=== PATIENT | male | born 1970 | race Caucasian/White ===

== ENCOUNTER 2020-11-01 06:02 | Emergency (ER) | payer OTHER ==
[~2020-11-01] VITALS: Ht 175.3 cm; Wt 101.0 kg
[2020-11-01] MEDS ORDERED: ONDANSETRON PF 4 MG/2 ML VIAL. IVP ONE (06:15)
[2020-11-01] MEDS ORDERED: IV NORMAL SALINE 1,000ML 1,000 ML IV ONE (06:15)
[2020-11-01] MEDS ORDERED: MORPHINE SULFATE 4 MG/ML DISP.SYRIN. IV ONE (06:30)
--- NOTE | 2020-11-01 06:33 | PHYS DOC ---
General Adult EDM: Chief Complaint: Right flank pain HPI: HPI: 49-year-old male presents with right flank pain. The patient woke up to a full work this morning and began to have some right flank and right low back pain. This was followed by nausea and vomiting. He did not have any food in his stomach so it is mostly dry heaves. After 15 or 20 minutes, the pain decreased and the patient continued to get ready for work. He then had another episode of 8 out of 10 pain and further vomiting. The pain did not subside so he decided come the emergency room. He currently has 7 out of 10 pain that he describes as a cramping pressure in the right flank. He was feeling normal when he went to bed last night. Denies fever or chills. No history of kidney stones. He does feel like he has to urinate more frequently this morning. Denies dysuria or hematuria. 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 Review of Systems: Review of Systems: Constitutional: Denies fever or chills Eyes: Denies change in visual acuity HENT: Denies nasal congestion or sore throat Respiratory: Denies cough or shortness of breath Cardiovascular: Denies chest pain or edema GI: Denies abdominal pain, nausea, vomiting, bloody stools or diarrhea : Denies dysuria Musculoskeletal: Right flank pain Integument: Denies rash Neurologic: Denies headache, focal weakness or sensory changes Endocrine: Denies polyuria or polydipsia Lymphatic: Denies swollen glands Psychiatric: Denies depression or anxiety Current Medications: Current Meds: Current Medications Medications (Trade) Dose Ordered Sig/[facility] Start Time Stop Time Status Last Admin Dose Admin Ondansetron HCl (Zofran) 4 mg 1X ONCE 11/01/20 06:15 11/01/20 06:18 DC Sodium Chloride 1,000 ml @ 1,000 mls/hr 1X ONCE 11/01/20 06:15 11/01/20 07:14 Allergies: Allergies: Allergies Coded Allergies Type Severity Reaction Last Updated Verified lisinopril Allergy Unknown 09/03/19 Yes Physical Exam: PE: Constitutional: Well developed, well nourished, obese, mild acute distress, non- toxic appearance. [] HENT: Normocephalic, atraumatic, bilateral external ears normal, oropharynx moist, no oral exudates, nose normal. [] Eyes: PERRLA, EOMI, conjunctiva normal, no discharge. [] Neck: Normal range of motion, no tenderness, supple, no stridor. [] Cardiovascular: Heart rate regular rhythm, no murmur [] Lungs & Thorax: Bilateral breath sounds clear to auscultation [] Abdomen: Bowel sounds normal, soft, no tenderness, no masses, no pulsatile masses. [] Skin: Warm, dry, no erythema, no rash. [] Back: No tenderness, right-sided CVA tenderness. [] Extremities: No tenderness, no cyanosis, no clubbing, ROM intact, no edema. [] Neurologic: Alert and oriented X 3, normal motor function, normal sensory function, no focal deficits noted. [] Psychologic: Affect normal, judgement normal, mood normal. [] EKG: EKG: [] Radiology/Procedures: Radiology/Procedures: [] Impressions: The patient's labs are unremarkable. His urinalysis does show significant blood. There is no sign of infection at this time. His CT scan does show multiple stones in the distal right ureter. See official read for more details. They are small enough that they may pass. I spoke with the patient's urologist, Dr. James Ferguson. He believes a trial at home to see if these would pass is reasonable. He will try to schedule the patient for an appointment in his office in 2 days just in case. If the patient's pain becomes uncontrolled or he begins to feel worse, they may intervene sooner. I have made the patient aware of all of these things. He states verbal understanding. He is stable for discharge at this time. Heart Score: C/O Chest Pain: No Risk Factors: Risk Factors: DM, Current or recent (<one month) smoker, HTN, HLP, family history of CAD, obesity. Risk Scores: Score 0 - 3: 2.5% MACE over next 6 weeks - Discharge Home Score 4 - 6: 20.3% MACE over next 6 weeks - Admit for Clinical Observation Score 7 - 10: 72.7% MACE over next 6 weeks - Early Invasive Strategies Course & Med Decision Making: Course & Med Decision Making Pertinent Labs and Imaging studies reviewed. (See chart for details) The patient's labs are unremarkable except for potassium of 2.8. I have given him 20 mEq of replacement by IV. His urinalysis does show significant blood. There is no sign of infection at this time. His CT scan does show multiple stones in the distal right ureter. See official read for more details. They are small enough that they may pass. I spoke with the patient's urologist, Dr. James Ferguson. He believes a trial at home to see if these would pass is reasonable. He will try to schedule the patient for an appointment in his office in 2 days just in case. If the patient's pain becomes uncontrolled or he begins to feel worse, they may intervene sooner. I have made the patient aware of all of these things. He states verbal understanding. He is stable for discharge at this time. [] Dragon Disclaimer: Dragon Disclaimer: This electronic medical record was generated, in whole or in part, using a voice recognition dictation system. Departure Departure: Impression: Primary Impression: Right ureteral stone Additional Impressions: Right nephrolithiasis Hypokalemia Disposition: HOME / SELF CARE / HOMELESS Condition: STABLE Referrals: FRANCISCO MATHIS (PCP) Patient Instructions: Kidney Stones, Uske-ib-Hjnc Scripts Hydrocodone/Acetaminophen (Hydrocodone-Acetamin 5-325 mg) 1 Each Tablet 1-2 EACH PO Q6HRS PRN for PAIN, #14 TAB Prov: CECELIA NICOLAS DO 11/01/20 Tamsulosin Hcl (FLOMAX) 0.4 Mg Cap.er.24h 1 CAP PO DAILY for kidney stone for 14 Days, #14 CAP 0 Refills Prov: CECELIA NICOLAS DO 11/01/20 CECELIA NICOLAS DO November 01, 2020 06:33
[2020-11-01 06:41] LABS: BASO # 0.1 x10^3/uL (0.0-0.2); BASO % 2 % (0-3); EOS # 0.1 x10^3/uL (0.0-0.7); EOS % 1 % (0-3); HEMATOCRIT 45.6 % (39.0-53.0); HEMOGLOBIN 15.8 g/dL (13.0-17.5); LYMPH # 1.8 x10^3/uL (1.0-4.8); LYMPH % 25 % (24-48); MEAN CORPUSCULAR HEMOGLOBIN 33 pg (25-35); MEAN CORPUSCULAR HGB CONC 35 g/dL (31-37); MEAN CORPUSCULAR VOLUME 96 fL (79-100); MONO # 0.4 x10^3/uL (0.0-1.1); MONO % 6 % (0-9); NEUT # 4.9 x10^3uL (1.8-7.7); NEUT % 67 % (31-73); PLATELET COUNT 309 x10^3/uL (140-400); RED BLOOD COUNT 4.77 x10^6/uL (4.30-5.70); RED CELL DISTRIBUTION WIDTH 15.4 % (11.5-14.5); WHITE BLOOD COUNT 7.3 x10^3/uL (4.0-11.0)
[2020-11-01 06:49] LABS: BILIRUBIN,URINE NEG (NEG); CLARITY,URINE HAZY; COLOR,URINE YELLOW; GLUCOSE,URINE NEG (NEG)
[2020-11-01 06:50] LABS: BACTERIA,URINE 0 /HPF (0-FEW); NITRITE,URINE NEG (NEG); RBC,URINE >40 /HPF (0-2); SQUAMOUS EPITHELIAL CELL,UR OCC /LPF; UROBILINOGEN,URINE 0.2 mg/dL (0.2 mg/dL); WBC,URINE RARE /HPF (0-4)
[2020-11-01 06:54] LABS: ALBUMIN 3.8 g/dL (3.4-5.0); CALCIUM 8.8 mg/dL (8.5-10.1); CREATININE 0.9 mg/dL (0.7-1.3); TOTAL PROTEIN 7.5 g/dL (6.4-8.2)
[2020-11-01 06:57] LABS: POTASSIUM 2.8 mmol/L (3.5-5.1)
[2020-11-01] MEDS ORDERED: HYDROmorphone PF 1 MG/ML DISP.SYRIN IVP ONE (07:15)
[2020-11-01] MEDS ORDERED: POTASSIUM CHLORIDE 20MEQ 100 ML IV ONE (07:15)
--- NOTE | 2020-11-01 07:38 | RAD ---
CT ABDOMEN+PELVIS WO History: Reason: right flank pain, right lower quadrant pain, hx : gastric bypass / Spl. Instructions : / History: Technique: Noncontrast examination of the abdomen and pelvis. Coronal and sagittal reconstructions we re performed. Exposure: One or more of the following individualized dose reduction techniques were utilized for thi s examination: 1. Automated exposure control 2. Adjustment of the mA and/or kV according to patient size 3. Use of iterative reconstruction technique. Comparison: None Findings: Lower chest: Calcified right lower lobe pulmonary nodule, likely prior granulomatous disease. 7 mm ri ght middle lobe nodular opacity (series 2 image 12). 4 mm left lower lobe pleural-based nodule (image 6). Abdomen and pelvis: Left hepatic lobe ill-defined hypodense region measures 4.0 x 3.7 cm. The spleen, adrenal glands, and pancreas are unremarkable. Mild distention of the gallbladder. Cholelithiasis. No biliary ductal dilatation. No gallbladder wall thickening. Mild right hydronephrosis. Right perinephric comparing ureteral fat stranding. Mildly dilated right u reter. Two 3 mm calculi within the right distal ureter at the ureterovesical junction with additional smaller calculus. Decompressed urinary bladder. Nonobstructing right intrarenal calculus. Punctate n onobstructing left intrarenal calculus. No left hydronephrosis. Normal appendix. No evidence of bowel obstruction. Postoperative changes gastric bypass. Mild fluid-f illed gastric remnant. No pathologic lymphadenopathy. No ascites. Small fat-containing bilateral ingu inal hernias. Bones: Lower lumbar spondylosis. Impression: 1. Three right ureterovesical junction obstructing calculi contributing to mild right hydroureterone phrosis and perinephric/periureteral edema. 2. Additional nonobstructing intrarenal calculi. 3. Cholelithiasis with mild gallbladder distention. 4. Ill-defined left hepatic lobe hypodense lesion, may represent geographic fatty infiltration altho ugh hemangioma or other solid lesion is possible. MRI with and without contrast can definitively eval uate. 5. Pulmonary nodules. Recommend 6-12 month follow-up CT. Comparison with prior imaging studies would also be of benefit. Electronically signed by: Bernard Ruiz DO (11/01/2020 7:36 AM) [id number]
[2020-11-01] MEDS ORDERED: HYDR-2759 PO (08:30)
[2020-11-01] MEDS ORDERED: HYDROcodone/APAP 5/325MG 1 TAB TABLET PO ONE (08:30)
[2020-11-01] MEDS ORDERED: TAMS0.4C97 PO (08:30)
[2020-11-01] MEDS ORDERED: TAMSULOSIN 0.4 MG CAP.ER.24H. PO ONE (08:30)
[2020-11-01 08:52] VITALS: BP 157/87
== END 2020-11-01 09:09 | disposition home or self-care (01) ==
LOC: ER 06:05
DX: N13.2 Hydronephrosis with renal and ureteral calculous obstruction (principal); E87.6 Hypokalemia; Z88.8 Allergy status to other drugs, medicaments and biological substances
CPT/HCPCS: 36415; 74176; 80053; 81001; 85025; 96361; 96365; 96366; 96375; 99285; J1170; J2270; J2405; J3480; J7030